=== PATIENT | male | born 1955 | race Caucasian/White ===

== ENCOUNTER 2016-10-24 19:37 | Inpatient (IN) | payer BC ==
--- NOTE | ~2016-10-24 | HP ---
History And Physical [facility] [address] [place]. [address] NAME: ANDERSON CERDA : 59 STATUS : ADM IN [facility]#: [id number] AGE: 61 ADM/REG DATE : 10/24/16 MR#: [id number] REPORT SERV DATE: 10/24/16 DICTATED BY: YIFAN MCFADDEN DATE: 10/24/16 REPORT STATUS : Draft TRANSCRIBED BY: MODOneida DATE: 10/24/16 DATE OF ADMISSION: 10/24/2016 ADMISSION DIAGNOSIS: Presumptive acute inferior myocardial infarction. HISTORY OF PRESENT ILLNESS: Mr. Cerda is a 61-year-old male, who presented to [facility] ED this evening with three hours of substernal chest discomfort/pressure. He was in his usual state of health in the days preceding this but noticed a tightness in his chest this evening that persisted and led him to the ED. He initially thought it was indigestion but the sensation was more prominent than prior episodes of indigestion he had. He denies any associated nausea, vomiting, or shortness of breath. There was some radiation to his left shoulder. In the ER, his EKG demonstrated ST elevations in the inferior leads with reciprocal ST depressions in V1 and V2. Code STEMI was activated, and I discussed the case with the ER attending and based on the EKG, we agreed to proceed to the catheterization lab emergently. I briefly met the patient in the ER prior to taking him to the lab asst and confirmed the above history. He received aspirin and heparin prior to arrival to the lab asst. PAST MEDICAL HISTORY: He denies any history of CAD or stroke. He has hypothyroidism, for which he takes Synthroid and smokes tobacco, but otherwise denies diabetes, hypertension, or any other associated risk factors. MEDICATIONS: Synthroid. ALLERGIES: NO KNOWN DRUG ALLERGIES. FAMILY HISTORY: Denies any premature CAD or inherited cardiac disorders. SOCIAL HISTORY: The patient is . His and daughter are at bedside. 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 He endorses tobacco and denies heavy alcohol or illicit drug use. REVIEW OF SYSTEMS: Per HPI. Otherwise, negative. PHYSICAL EXAMINATION: VITAL SIGNS: Pulse approximately 55, blood pressure 120/80, respiratory rate 14 GENERAL: Appears comfortable. HEENT: Sclerae anicteric; mucous membranes moist. NECK: No JVD. Thyroid not tender or enlarged CARDIOVASCULAR: Regular rhythm with normal S1/S2. No murmurs, rubs, or gallop. PULMONARY: Lung holman CTA. ABDOMEN: Soft, nontender, no masses EXTREMITIES: Warm, no edema. NEUROLOGIC: Grossly without deficits. History And Physical [address] [place]. [address] NAME: ANDERSON CERDA : 59 STATUS : ADM IN PAT#: [id number] AGE: 61 ADM/REG DATE : 10/24/16 MR#: [id number] REPORT SERV DATE: 10/24/16 DICTATED BY: YIFAN MCFADDEN DATE: 10/24/16 REPORT STATUS : Draft TRANSCRIBED BY: JS DATE: 10/24/16 IMAGING: EKG demonstrates sinus bradycardia with a heart rate of 54, a single PVC and ST elevations of approximately 1 mm in II, III, and AVF with ST depression in V1 and V2. Compared to prior EKG dated 08/01/2012, these changes are new and are consistent with evolving inferior ND. IMPRESSION/RECOMMENDATIONS: 1. Acute inferior myocardial infarction. 2. History tobacco abuse. 3. History of hypothyroidism. 4. Based on the EKG and the patient's presentation, we will proceed to the catheterization lab emergently. I discussed the risks, benefits, and alternatives with him and he is agreeable to proceed. Further recommendations pending initial clinical course. DEBI/JS Yifan Mcfadden MD / [id number] CC: MD Art Villatoro M.D.
[2016-10-24 20:03] LABS: BASOPHILS 0.4 %; BASOPHILS ABSOLUTE 0.05 10/3/uL (0.0-0.16); EOSINOPHILS 2.3 %; EOSINOPHILS ABSOLUTE 0.27 10/3/uL (0.0-0.53); HEMATOCRIT 45.5 % (40.0-51.0); HEMOGLOBIN 15.7 g/dL (13.6-17.8); IMMATURE GRANULOCYTES 0.2 %; IMMATURE GRANULOCYTES ABSOLUTE 0.02 10/3/uL (0.0-0.11); LYMPHOCYTES 18.4 %; LYMPHOCYTES ABSOLUTE 2.19 10/3/uL (0.67-4.30); MEAN CORPUS HGB CONC 34.5 g/dL (32.0-36.0); MEAN CORPUSCULAR HEMOGLOB 30.7 pg (26.0-34.0); MEAN PLATELET VOLUME 10.5 fL (9.2-13.0); MONOCYTES 5.8 %; MONOCYTES ABSOLUTE 0.69 10/3/uL (0.21-1.20); NEUTROPHILS 72.9 %; NEUTROPHILS ABSOLUTE 8.69 10/3/uL (2.02-8.40); PLATELET COUNT 179 10/3/uL (150-400); RBC DISTRIBUTION WIDTH 14.5 % (12.0-16.0); RED CELL COUNT 5.11 10/6/uL (4.7-6.1); WHITE BLOOD CELLS 11.9 10/3/uL (4.5-10.5)
[2016-10-24] MEDS ORDERED: SYN.05 PO (20:04)
[2016-10-24] MEDS ORDERED: ACET500CAP PO (20:04)
[2016-10-24] MEDS ORDERED: ASABAYER PO (20:04)
[2016-10-24 20:09] LABS: MANUAL DIFF NO %
[2016-10-24 20:11] LABS: PARTIAL THROMBO TIME 24.1 SEC (22.5-37.2); PROTIME (NOT ORD) 13.1 SEC (12.0-14.5)
[2016-10-24 20:19] LABS: BUN (BLOOD UREA NITROGEN) 18 MG/DL (6-23); CALCIUM, SERUM 9.3 MG/DL (8.5-10.4); CHLORIDE, SERUM 101 MMOL/L (96-112); CO2 (CARBON DIOXIDE) 30 MMOL/L (24-34); CREATININE 1.05 MG/DL (0.70-1.30); GFR AFRICAN AMERICAN 90 ML/MIN (>=60); GFR NON AFRICAN AMERICAN 77 ML/MIN (>=60); GLUCOSE, SERUM 95 MG/DL (60-99); POTASSIUM, SERUM 3.6 MMOL/L (3.5-5.3); SODIUM, SERUM 141 MMOL/L (135-148)
[2016-10-24 20:20] LABS: CHEST PAIN PROFILE TAT 0 Hrs 21 Mins; TROPONIN I 0.77 NG/ML (<0.05)
[2016-10-25 01:59] LABS: BASOPHILS 0.4 %; BASOPHILS ABSOLUTE 0.04 10/3/uL (0.0-0.16); EOSINOPHILS 1.1 %; HEMATOCRIT 43.2 % (40.0-51.0); IMMATURE GRANULOCYTES 0.1 %; IMMATURE GRANULOCYTES ABSOLUTE 0.01 10/3/uL (0.0-0.11); LYMPHOCYTES 18.6 %; LYMPHOCYTES ABSOLUTE 1.72 10/3/uL (0.67-4.30); MEAN CORPUS HGB CONC 34.7 g/dL (32.0-36.0); MEAN CORPUSCULAR HEMOGLOB 30.7 pg (26.0-34.0); MEAN CORPUSCULAR VOLUME 88.3 fL (80-100); MEAN PLATELET VOLUME 10.4 fL (9.2-13.0); MONOCYTES 6.1 %; MONOCYTES ABSOLUTE 0.56 10/3/uL (0.21-1.20); NEUTROPHILS 73.7 %; NEUTROPHILS ABSOLUTE 6.82 10/3/uL (2.02-8.40); PLATELET COUNT 181 10/3/uL (150-400); RBC DISTRIBUTION WIDTH 14.3 % (12.0-16.0); RED CELL COUNT 4.89 10/6/uL (4.7-6.1); WHITE BLOOD CELLS 9.3 10/3/uL (4.5-10.5)
[2016-10-25 02:00] LABS: MANUAL DIFF NO %
[2016-10-25 02:33] LABS: CALCIUM, SERUM 8.9 MG/DL (8.5-10.4); CHLORIDE, SERUM 104 MMOL/L (96-112); CHOL/HDL RATIO(NOT ORDER) 2.9 (0-5); CHOLESTEROL 218 MG/DL (< 200); CK-MB 137.7 NG/ML; CO2 (CARBON DIOXIDE) 26 MMOL/L (24-34); CPK 1313 U/L (0-200); CREATININE 0.79 MG/DL (0.70-1.30); GFR AFRICAN AMERICAN 114 ML/MIN (>=60); GFR NON AFRICAN AMERICAN 98 ML/MIN (>=60); GLUCOSE, SERUM 105 MG/DL (60-99); HDL CHOLESTEROL 75 MG/DL (> 39); LDL CHOLESTEROL 117 MG/DL (< 130); NON-HDL CHOLESTEROL 143 MG/DL (< 160); POTASSIUM, SERUM 4.2 MMOL/L (3.5-5.3); SODIUM, SERUM 141 MMOL/L (135-148); TRIGLYCERIDE 133 MG/DL (< 150)
[2016-10-25 02:36] LABS: BUN (BLOOD UREA NITROGEN) 13 MG/DL (6-23); CKMB INDEX (NOT ORD) 10.5
[2016-10-25 08:44] LABS: CK-MB 122.8 NG/ML
[2016-10-25 08:46] LABS: CKMB INDEX (NOT ORD) 10.2
[2016-10-25 09:03] LABS: TROPONIN I 58.6 NG/ML (<0.05)
[2016-10-25 17:13] LABS: CKMB INDEX (NOT ORD) 8.1
[2016-10-26 01:56] LABS: BASOPHILS 0.3 %; BASOPHILS ABSOLUTE 0.03 10/3/uL (0.0-0.16); EOSINOPHILS ABSOLUTE 0.19 10/3/uL (0.0-0.53); HEMATOCRIT 40.8 % (40.0-51.0); HEMOGLOBIN 14.1 g/dL (13.6-17.8); IMMATURE GRANULOCYTES 0.2 %; IMMATURE GRANULOCYTES ABSOLUTE 0.02 10/3/uL (0.0-0.11); LYMPHOCYTES 15.3 %; LYMPHOCYTES ABSOLUTE 1.46 10/3/uL (0.67-4.30); MEAN CORPUS HGB CONC 34.6 g/dL (32.0-36.0); MEAN CORPUSCULAR HEMOGLOB 30.3 pg (26.0-34.0); MEAN CORPUSCULAR VOLUME 87.7 fL (80-100); MEAN PLATELET VOLUME 10.9 fL (9.2-13.0); MONOCYTES 10.5 %; NEUTROPHILS 71.7 %; NEUTROPHILS ABSOLUTE 6.84 10/3/uL (2.02-8.40); PLATELET COUNT 181 10/3/uL (150-400); RBC DISTRIBUTION WIDTH 14.5 % (12.0-16.0); RED CELL COUNT 4.65 10/6/uL (4.7-6.1); WHITE BLOOD CELLS 9.5 10/3/uL (4.5-10.5)
[2016-10-26 01:58] LABS: MANUAL DIFF NO %
[2016-10-26 02:19] LABS: BUN (BLOOD UREA NITROGEN) 10 MG/DL (6-23); CALCIUM, SERUM 8.5 MG/DL (8.5-10.4); CHLORIDE, SERUM 105 MMOL/L (96-112); CK-MB 39.6 NG/ML; CO2 (CARBON DIOXIDE) 27 MMOL/L (24-34); CREATININE 0.86 MG/DL (0.70-1.30); GFR AFRICAN AMERICAN 110 ML/MIN (>=60); GFR NON AFRICAN AMERICAN 95 ML/MIN (>=60); GLUCOSE, SERUM 109 MG/DL (60-99); POTASSIUM, SERUM 3.8 MMOL/L (3.5-5.3); SODIUM, SERUM 143 MMOL/L (135-148)
[2016-10-26 02:20] LABS: CKMB INDEX (NOT ORD) 4.9
[2016-10-26] MEDS ORDERED: ASAB PO (14:55)
[2016-10-26] MEDS ORDERED: PRIN2.5 PO (14:55)
[2016-10-26] MEDS ORDERED: NTG150 SL (14:56)
[2016-10-26] MEDS ORDERED: TOPXL25 PO (14:57)
[2016-10-26] MEDS ORDERED: BRILINTA90 MG PO (14:58)
[2016-10-26] MEDS ORDERED: LIPITOR80 MG PO (14:59)
== END 2016-10-26 17:33 | disposition home or self-care (01) | DRG 247 ==
LOC: CORLMH 19:37 → SSU2 19:58 → CCU 23:04 → 7NO 10-25 12:31
PROVIDERS: Emergency Medicine; Internal Medicine Cardiovascular Disease
PROC: 027034Z Dilation of Coronary Artery, One Artery with Drug-eluting Intraluminal Device, Percutaneous Approach (ICD-10-PCS; principal; 2016-10-24)
PROC: 02703ZZ Dilation of Coronary Artery, One Artery, Percutaneous Approach (ICD-10-PCS; 2016-10-24)
PROC: 02C03ZZ Extirpation of Matter from Coronary Artery, One Artery, Percutaneous Approach (ICD-10-PCS; 2016-10-24)
PROC: 4A023N7 Measurement of Cardiac Sampling and Pressure, Left Heart, Percutaneous Approach (ICD-10-PCS; 2016-10-24)
PROC: B2111ZZ Fluoroscopy of Multiple Coronary Arteries using Low Osmolar Contrast (ICD-10-PCS; 2016-10-24)
PROC: B2151ZZ Fluoroscopy of Left Heart using Low Osmolar Contrast (ICD-10-PCS; 2016-10-24)
DX: I21.19 ST elevation (STEMI) myocardial infarction involving other coronary artery of inferior wall (principal); E03.9 Hypothyroidism, unspecified; I25.10 Atherosclerotic heart disease of native coronary artery without angina pectoris; F17.210 Nicotine dependence, cigarettes, uncomplicated; I49.3 Ventricular premature depolarization
CPT/HCPCS: 71010; 80048; 80061; 82550; 82553; 83735; 84484; 85025; 85610; 85730; 87641; 93005; 93306; 93458; 96374; 99152; 99153; 99285; A9270-GY; C1725; C1757; C1760; C1769; C1874; C1887; C9606; J0583; J1327; J2250; J3010; Q9967